=== PATIENT | female | born 1975 | race Caucasian/White ===

== ENCOUNTER 2017-10-30 05:02 | Day surgery (SDC) | payer BC, OTHER ==
[2017-10-29 18:25] VITALS: BMI 22.8
--- NOTE | 2017-10-30 12:01 | HP ---
History & Physical Update - History History: No Change - Physical Physical: No Change - Assessment Assessment: No Change - Plan Plan: No Change (History and physical reviewd from 10/17/16, no changes identified; Patient consented for hysteroscopy, polypectomy, D&C)
[2017-10-30] MEDS ORDERED: ONDANSETRON 4 MG/2 ML VIAL IVPUSH PRN (12:12)
[2017-10-30] MEDS ORDERED: IBUPROFEN 800 MG/8 ML IJ IVPB PRN (12:12)
[2017-10-30] MEDS ORDERED: IBUPROFEN 600 MG TABLET (FP) PO PRN (12:12)
[2017-10-30] MEDS ORDERED: oxyCODONE HCL 5 MG TABLET PO PRN (12:12)
[2017-10-30] MEDS ORDERED: ELECTROLYTE-148 SOLN 1,000 ML IV SCH (12:15)
[2017-10-30] MEDS ORDERED: MIDAZOLAM HCL 2 MG/2 ML SINGLE DOSE VIAL ONE ×2 (12:46)
[2017-10-30] MEDS ORDERED: PROPOFOL 20 ML ONE ×2 (12:58)
[2017-10-30] MEDS ORDERED: DEXAMETHASONE SOD PHOSPHATE 4 MG/1 ML VIAL ONE (13:23)
--- NOTE | 2017-10-30 13:51 | OP ---
Operative Note - Note: Operative Date: 10/30/17 Pre-Operative Diagnosis: 42yo P 0 attempting fertility, with endometrial polyp Operation: Hysteroscopy, Polypectomy, D&C Findings: Posterior wall Endometrial Polyp Endocervical polyp Post-Operative Diagnosis: Same as Pre-op Surgeon: Theresa Gonzalez Anesthesiologist/RICE DRIER: Alexis Vazquez Anesthesia: MAC Specimens Removed: Endometrial Polyp. Endocervical Polyp. Endometrial curettings Estimated Blood Loss (mls): 0 Instrument used (Debridements only): TruClear device Drains & Tubes with Location: Fluid deficit - 60cc Drains, Volume Out (mls): 350 Fluid Volume Replaced (mls): 400 Operative Report Dictated: Yes
[2017-10-30] MEDS ORDERED: KETOROLAC TROMETHAMINE 30 MG/1 ML VIAL ONE (13:54)
[2017-10-30] MEDS ORDERED: PROMETHAZINE HCL 25 MG/1 ML VIAL IVPB PRN (13:59)
[2017-10-30] MEDS ORDERED: LACTATED RINGERS SOLUTION 1,000 ML IV SCH (14:00)
[2017-10-30 14:53] VITALS: TEMP 98
--- NOTE | 2017-10-30 16:44 | OP ---
DATE OF OPERATION: 10/30/2017 A 42-year-old para 0 attempting fertility, with endometrial polyp. OPERATION: Hysteroscopy, polypectomy, dilatation and curettage. POSTOPERATIVE DIAGNOSIS: A 42-year-old para 0 attempting fertility, with endometrial polyp. FINDINGS: Posterior wall endometrial polyp and endocervical polyp. SURGEON: Theresa Gonzalez MD ANESTHESIOLOGIST: Alexis Vazquez MD ANESTHESIA: MAC. SPECIMENS REMOVED: Endometrial polyp, endocervical polyp, endometrial curettings, all in 1 container. DESCRIPTION OF OPERATIVE PROCEDURE: After assuring informed consent, patient was brought to the operating room where she was placed in dorsal lithotomy position. Perineum and vagina were prepped and draped in a sterile fashion. A 5-mm hysteroscope was assembled, balanced, and primed. The cervix was visualized by placing Lira retractors into the vagina. Anterior cervical lip was articulated with single-tooth tenaculum. Cervix was gradually dilated with Calderon dilators to accommodate 5-mm hysteroscope to 19-gauge dilation. The hysteroscope was introduced atraumatically with good visualization of the uterine contours. The endometrium was surveyed. Posterior wall endometrial polyp was identified. Bilateral ostia were visualized. Cervical polyp was visualized as well. The TruClear resectoscope was introduced into the endometrial cavity, window locked, and all polyps and excessive endometrium were resected. All instruments subsequently were removed from the uterus, cervix, and vagina. Excellent hemostasis was noted. Sponge stick and instrument count was correct x2. Specimen was sent for pathology. Estimated blood loss was 0 mL. Fluid deficit was 60 mL. Patient received 400 mL of IV fluids and drained 350 mL of urine. Patient was extubated and brought to the recovery room in stable condition. Katarina [id number]
[2017-10-30 17:39] VITALS: BP 90/54; PULSE 75
--- NOTE | 2017-11-01 12:45 | PATH ---
Surgical Pathology Report Patient Name: PURNIMA GILBERT [facility]. Rec. #: [id number] /Age/Gender: 1975 (Age: 42) / F Account: [id number] Location: [facility] SURGICAL Taken: 10/30/2017 Received: 10/31/2017 Reported: 11/01/2017 Physicians: Theresa Gonzalez M.D. Specimen(s) Received ENDOMETRIAL CURETTINGS AND POSTERIOR WALL ENDOMETRIAL POLYP AND INTRACERVICAL POLYP Clinical History Endometrial polyp Final Diagnosis ENDOMETRIAL CURETTINGS, ENDOMETRIAL POLYP, DILATION AND CURETTAGE: FRAGMENTS OF ENDOMETRIAL POLYP. Electronically Signed Yuliana Del Angel M.D. Gross Description Received in formalin labeled "endometrial curettings and endometrial polyp and intracervical polyp," is a 1.2 x 1.0 x 0.2 cm aggregate of patrick soft tissue fragments. The formalin is filtered and the specimen is entirely submitted in one cassette. 10/31/2017 saudi10/31/2017
== END 2017-10-30 17:39 | disposition home or self-care (01) ==
LOC: JASU-SURG 05:02
PROVIDERS: ATTEND Obstetrics & Gynecology
PROC: 0UDB8ZX Extraction of Endometrium, Via Natural or Artificial Opening Endoscopic, Diagnostic (ICD-10-PCS; 2017-10-30)
PROC: 0UBC8ZX Excision of Cervix, Via Natural or Artificial Opening Endoscopic, Diagnostic (ICD-10-PCS; principal; 2017-10-30 11:00)
PROC: 0UB98ZX Excision of Uterus, Via Natural or Artificial Opening Endoscopic, Diagnostic (ICD-10-PCS; 2017-10-30 11:00)
DX: N84.0 Polyp of corpus uteri (principal); N84.1 Polyp of cervix uteri
CPT/HCPCS: 84703; 88305-TC; 94760